=== PATIENT | female | born 1970 | race African-American/Black ===

== ENCOUNTER → 2021-01-22 | Outpatient (CLI) | payer OTHER | LOC: M.RAD 07:26 | DX: Z12.31 Encounter for screening mammogram for malignant neoplasm of breast (principal) ==

== ENCOUNTER → 2021-08-26 | Outpatient (CLI) | payer OTHER | LOC: M.RAD 08-20 10:16 | PROVIDERS: ATTEND Obstetrics & Gynecology | DX: R92.2 Inconclusive mammogram (principal); N64.89 Other specified disorders of breast ==